=== PATIENT | female | born 1940 | race Caucasian/White ===

== ENCOUNTER 2019-05-21 02:41 | Inpatient (IN) | payer MEDICARE, OTHER ==
[~2019-05-21] VITALS: Ht 165.1 cm; Wt 65.5 kg
[2019-05-21 02:53] VITALS: BP 123/55; PULSE 95; TEMP 98.1
[2019-05-21] MEDS ORDERED: VASOTEC 2.2.5 MG/TAB PO (03:10)
[2019-05-21] MEDS ORDERED: AGGRENOX ER 251 CER PO (03:10)
[2019-05-21] MEDS ORDERED: LASIX 20MG TABL20 MG PO (03:11)
[2019-05-21] MEDS ORDERED: NITROSTAT0.4 MG/TAB SL (03:12)
[2019-05-21] MEDS ORDERED: ZOCOR 20MG20 MG PO (03:13)
[2019-05-21] MEDS ORDERED: ALDACTONE 25MG25 M1 PO ×2 (03:14→03:15)
[2019-05-21 04:21] LABS: MUCOUS Present /lpf; PH 6 (5-8); SQUAMOUS EPITHELIAL None Seen /hpf; URINE APPEARANCE Clear; URINE BACTERIA Rare /hpf; URINE BILIRUBIN Negative (NEGATIVE); URINE BLOOD Negative (NEGATIVE); URINE COLOR Yellow; URINE GLUCOSE Negative (NEGATIVE); URINE KETONE Trace (NEGATIVE); URINE LEUKOCYTE ESTERASE Negative (NEGATIVE); URINE NITRATE Negative (NEGATIVE); URINE PROTEIN(semi-quant) 1+ (NEGATIVE); URINE RBC 0-2 /hpf; URINE UROBILINOGEN Negative (NEGATIVE)
[2019-05-21 04:42] LABS: COLLECTION METHOD CLEAN CATCH
[2019-05-21 06:00] LABS: ALBUMIN 3.7 gm/dL (3.5-5.0); BASO % 0.4 % (0.0-2.0); BILIRUBIN,TOTAL 0.4 mg/dL (0.0-1.0); CALCIUM 10.1 mg/dL (8.4-10.2); CREATININE, serum 1.29 (0.52-1.25); EOS # 0.2 (0.0-0.7); EOS % 1.9 % (0-4.0); GRAN # 7.3 (1.4-6.5); GRAN % 76.3 % (42.2-75.2); HEMATOCRIT 39.3 % (37.0-47.0); HEMOGLOBIN 12.7 g/dl (12.5-16.0); LYMPH # 1.3 (1.2-3.4); LYMPH % 13.5 % (20.0-51.0); MEAN CELL VOLUME 95 fl (80.0-100.0); MEAN CORPUSCULAR HEMOGLOBIN 31 pg (27.0-31.0); MEAN CORPUSCULAR HGB CONC 32 g/dl (33.0-37.0); MEAN PLATELET VOLUME 10.1 fl (7.4-10.4); MONO # 0.7 (0.1-0.6); MONO % 7.5 % (1.7-9.3); PLATELET COUNT 249 K/mm3 (130-400); POTASSIUM 4.2 mmol/L (3.4-5.0); RED BLOOD COUNT 4.15 M/mm3 (4.10-5.30); REDCELL DISTRIBUTION WIDTH-CV 12.9 % (11.5-14.5)
[2019-05-21 06:02] LABS: PROTHROMBIN TIME 12.1 SECONDS (9.7-12.8)
[2019-05-21 06:21] LABS: PRE ALBUMIN 19.8 mg/dL (17.6-36.0)
[2019-05-21 07:07] VITALS: BP 132/50; PULSE 97; TEMP 98.1
--- NOTE | 2019-05-21 10:59 | NUR ---
SW met with the patient to discuss a discharge plan. The pt lives in [place] with her , Fam. The pt does not use DME and reports independence with ADLs. The pt's PCP is Dr. Scott and pt receives her medications from [facility] in [place] with no difficulties. The pt does not have advanced directive in the EMR but reports she does have them completed. Once the pt discharges home pt's Fam will provide transportation. SW will continue to follow to assist with any discharge recommendations.
--- NOTE | 2019-05-21 11:15 | NUR ---
PATIENT RESTING IN BED, PT SEEN BY HOSPITALIST AND IS MEDICALLY OPTIMIZED FOR SURGERY PENDING AGGRONOX TIMING. AT BEDSIDE.
[2019-05-21 11:22] VITALS: BP 114/49; PULSE 95; TEMP 97.9
--- NOTE | 2019-05-21 11:26 | NUR ---
First visit from the audio narrator. No needs right now.
--- NOTE | 2019-05-21 11:50 | NUR ---
SPOKE WITH CHRISTINE RODGERS FOR AND PLAN ON SURGERY WED PM D/T MEDICATION AGGRONOX.
[2019-05-21 15:33] VITALS: BP 124/82; PULSE 90; TEMP 99.2
--- NOTE | 2019-05-21 18:51 | NUR ---
REPORT TO EMMANUEL STYLES.
[2019-05-21 20:50] VITALS: BP 134/69; PULSE 111; TEMP 98
[2019-05-22 00:23] VITALS: BP 146/77; PULSE 112; TEMP 98.1
--- NOTE | 2019-05-22 00:57 | NUR ---
Patient called out and stated her heels were hurting her. Upon arrival to the room patient noted to be crying and stated that she felt like she needed to move and that her heels were just hurting so bad. Patient repositoned and ice placed on hip. Heels floated. Patient stated she felt much better after this repositioning, but was still hurting. PRN pain medication administered. Upon reassessment, patient was asleep. Will continue to monitor and provide pain management.
[2019-05-22 03:16] VITALS: BP 130/58; PULSE 93; TEMP 98.4
--- NOTE | 2019-05-22 06:40 | NUR ---
awake resting in bed, bedside shift report received from STEPHANI Diego
[2019-05-22 07:05] LABS: BASO % 0.4 % (0.0-2.0); EOS # 0.2 (0.0-0.7); EOS % 2.2 % (0-4.0); GRAN # 7.5 (1.4-6.5); GRAN % 80.4 % (42.2-75.2); HEMATOCRIT 41.2 % (37.0-47.0); HEMOGLOBIN 13.1 g/dl (12.5-16.0); LYMPH # 0.9 (1.2-3.4); LYMPH % 9.8 % (20.0-51.0); MEAN CELL VOLUME 94 fl (80.0-100.0); MEAN CORPUSCULAR HEMOGLOBIN 30 pg (27.0-31.0); MEAN CORPUSCULAR HGB CONC 32 g/dl (33.0-37.0); MEAN PLATELET VOLUME 10.2 fl (7.4-10.4); MONO # 0.6 (0.1-0.6); MONO % 6.8 % (1.7-9.3); PLATELET COUNT 224 K/mm3 (130-400); RED BLOOD COUNT 4.37 M/mm3 (4.10-5.30); REDCELL DISTRIBUTION WIDTH-CV 12.8 % (11.5-14.5)
[2019-05-22 07:09] LABS: CALCIUM 9.9 mg/dL (8.4-10.2); CREATININE, serum 0.87 (0.52-1.25); POTASSIUM 4.9 mmol/L (3.4-5.0)
--- NOTE | 2019-05-22 08:10 | NUR ---
full assessment completed, see interventions for further info, consent signed, has ordered breakfast, denies needs at this time
--- NOTE | 2019-05-22 09:45 | NUR ---
CATTLE TESTER in and assisting her with am hygiene, denies needs
--- NOTE | 2019-05-22 10:40 | NUR ---
appears to be dozing, in bed with eyes closed, resp quiet and easy
[2019-05-22 11:36] VITALS: BP 98/59; PULSE 96; TEMP 99.6
--- NOTE | 2019-05-22 15:20 | NUR ---
medicated with morphine 2mg slow IV in anticipation of going to radiology for CT scan, staff here and to radiology per bed
--- NOTE | 2019-05-22 15:50 | NUR ---
returned to room per bed, repositioned for comfort, denies needs
[2019-05-22 16:29] VITALS: BP 145/71; PULSE 112; TEMP 100.1
--- NOTE | 2019-05-22 17:11 | NUR ---
Ariela HORVATH in to see and talk with patient
--- NOTE | 2019-05-22 18:45 | NUR ---
appears to be dozing, awakened and bedside shift report given to STEPHANI Dang
[2019-05-22 19:33] VITALS: BP 125/88; PULSE 104; TEMP 98.5
--- NOTE | 2019-05-22 21:10 | NUR ---
Pt. laying in bed at this time. Pt. is A&OX3, assessment complete. INT to rt. forearm patent. Pt. reports pain to rt. hip at a 5 intermittently. Gave pain meds per orders. Pt. denies further needs, call light within reach.
[2019-05-23] VITALS (20 sets, daily range): BP systolic 81–147; BP diastolic 41–94; PULSE 88–117; TEMP 97.6–99.1
--- NOTE | 2019-05-23 06:05 | NUR ---
Pt. slept well through the night. Pt. remains A&OX3. INT to rt. forearm patent. Pt. denies needs at this time.
[2019-05-23 06:33] LABS: BASO # 0.1 (0.0-0.2); BASO % 0.6 % (0.0-2.0); EOS # 0.1 (0.0-0.7); EOS % 0.7 % (0-4.0); GRAN # 8.5 (1.4-6.5); GRAN % 78.4 % (42.2-75.2); HEMATOCRIT 40.6 % (37.0-47.0); HEMOGLOBIN 12.9 g/dl (12.5-16.0); LYMPH # 1.3 (1.2-3.4); LYMPH % 11.9 % (20.0-51.0); MEAN CELL VOLUME 94 fl (80.0-100.0); MEAN CORPUSCULAR HEMOGLOBIN 30 pg (27.0-31.0); MEAN CORPUSCULAR HGB CONC 32 g/dl (33.0-37.0); MONO # 0.8 (0.1-0.6); MONO % 7.8 % (1.7-9.3); PLATELET COUNT 211 K/mm3 (130-400); RED BLOOD COUNT 4.31 M/mm3 (4.10-5.30); REDCELL DISTRIBUTION WIDTH-CV 12.7 % (11.5-14.5)
[2019-05-23 06:38] LABS: CREATININE, serum 0.89 (0.52-1.25); POTASSIUM 4.7 mmol/L (3.4-5.0)
--- NOTE | 2019-05-23 06:42 | NUR ---
bedside shift report received from STEPHANI Dang
--- NOTE | 2019-05-23 08:30 | NUR ---
vital signs completed by TOUR DRIVER and calls to notify this nurse her O2 sat is 88% on room air and heart rate is in the 120s, entered room and patient denies shortness of breath, am hygiene completed, catheter appears to be leaking and care provided, urine is cloudy and has a foul odor, Elizabeth RODGERS notified and will obtain a urine specimen,
--- NOTE | 2019-05-23 09:00 | NUR ---
lab in to draw blood, Dr Kaur and care team in to see patient, EKG then completed, spoke with radiology nurse regarding being able to do lung biopsy early afternoon
--- NOTE | 2019-05-23 09:15 | NUR ---
radiology nurse did call and will plan to do lung biopsy between 1300 and 1330
--- NOTE | 2019-05-23 09:20 | NUR ---
[place] CRNA notified of the plan to do lung biopsy before surgery
[2019-05-23 09:55] LABS: PH 5 (5-8); SQUAMOUS EPITHELIAL None Seen /hpf; URINE APPEARANCE Cloudy; URINE BACTERIA None Seen /hpf; URINE BILIRUBIN Negative (NEGATIVE); URINE BLOOD 3+ (NEGATIVE); URINE COLOR Amber; URINE GLUCOSE Negative (NEGATIVE); URINE KETONE Negative (NEGATIVE); URINE LEUKOCYTE ESTERASE 3+ (NEGATIVE); URINE NITRATE Positive (NEGATIVE); URINE PROTEIN(semi-quant) 2+ (NEGATIVE); URINE RBC >50 /hpf; URINE UROBILINOGEN Negative (NEGATIVE)
[2019-05-23 10:02] LABS: COLLECTION METHOD CATHETER
--- NOTE | 2019-05-23 10:57 | NUR ---
full assessment completed, spoke with VISHAL Nelson and informed her of UA results and was giving Rocephin and also of the lung biopsy early afternoon before surgery,
--- NOTE | 2019-05-23 11:00 | NUR ---
called and in to visit with her
--- NOTE | 2019-05-23 11:54 | NUR ---
resting in bed and now at bedside
--- NOTE | 2019-05-23 11:58 | NUR ---
Architecture Instructor was called to room. Patient requested prayer. Architecture Instructor prayed with patient. No other needs right now.
--- NOTE | 2019-05-23 13:10 | NUR ---
to radiology per bed for CT guided lung biopsy, report given to Leslie Mathew RN
--- NOTE | 2019-05-23 13:30 | NUR ---
PT IN CT AND TRANSFERED VIA BACK BOARD TO CT BED. MONITORING EQUIPMENT PLACED. IMAGES DONE.
--- NOTE | 2019-05-23 13:40 | NUR ---
AT 1330 PT WAS GIVEN 0.5 MG VERSED AND 25 MCG OF FENT[place]L FOR PAIN DUE TO HIP FX
--- NOTE | 2019-05-23 13:55 | NUR ---
SURGERY STAFF COMES TO GET PT. REPORT GIVEN TO RONI STYLES. PT IS SETTLED INTO HER BED AND TAKEN BY OR STAFF. PT IS ALERT AND RESPNSIVE TO STAFF.
--- NOTE | 2019-05-23 14:32 | NUR ---
remains off the unit for lung biopsy/surgery
--- NOTE | 2019-05-23 16:50 | NUR ---
returned to room per bed from PACU, awake and alert, IV infusing and placed on pump at 100ml/hr, O2 on at 3L/NC and O2 sat 93%, nance cath patent draining clear yellow urine, SCDs on bilaterally and SIDNEY hose on left leg, bulky dressing to right hp with ice and is CD&I, has sensation down to tad bilaterally and unable to move lower extremities, takes sips of water and tolerates well, denies needs, at bedside
--- NOTE | 2019-05-23 17:15 | NUR ---
is beginning to c/o pain to right hip and that it is increasing, medicated with hydrocodone 7.5mg 2 tabs, had dry hacky cough that started before going to CT for lung biopsy
--- NOTE | 2019-05-23 17:30 | NUR ---
visiting with and other family member, taking some broth and tolerates well
--- NOTE | 2019-05-23 18:04 | NUR ---
tolerating broth and assisted with ordering soup for supper
--- NOTE | 2019-05-23 18:59 | NUR ---
bedside shift report given to STEPHANI Connors
--- NOTE | 2019-05-23 21:12 | NUR ---
Patient in bed, ate all of her soup and ice cream without nausea or vomiting. Has nance catheter to BSD with cloudy yellow urine, catheter care provided. Has large dressing to right hip with ice pack on. Placed SIDNEY hose to right leg, wearing SCD's bilaterally. Reports pain to right leg and foot 8/10, medicated with [place] 7.5mg 2 tabs at this time. Nance previously kinked and had leaked on pad, changed pad at this time, patient rolls fair side to side with assist. IVF to right forearm without redness or swelling. WEaring oxygen at 2L/nc.
--- NOTE | 2019-05-24 02:20 | NUR ---
Capped IV site at this time. Taking food and fluids well. Denies need for pain meds at this time.
[2019-05-24 04:14] VITALS: BP 96/72; PULSE 107; TEMP 98.4
--- NOTE | 2019-05-24 04:33 | NUR ---
Spoke with Dr Delgadillo regarding telemetry call stating patient was going in and out of AFIB and EKG completed with results in the computer of Sinus Tachycardia. No new orders at this time.
--- NOTE | 2019-05-24 05:36 | NUR ---
Patient complains of right hip pain, 05/19. Medicated with [place] 7.5mg 2 tabs at this time.
--- NOTE | 2019-05-24 06:15 | NUR ---
Dr Arthur in and changes drsg to right hip, places Aquacel.
[2019-05-24 07:19] LABS: CALCIUM 9.8 mg/dL (8.4-10.2); CREATININE, serum 0.87 (0.52-1.25); POTASSIUM 4.8 mmol/L (3.4-5.0)
[2019-05-24 07:23] LABS: BASO % 0.2 % (0.0-2.0); GRAN # 8.6 (1.4-6.5); LYMPH # 0.7 (1.2-3.4); LYMPH % 6.7 % (20.0-51.0); MEAN CELL VOLUME 96 fl (80.0-100.0); MEAN CORPUSCULAR HGB CONC 31 g/dl (33.0-37.0); MEAN PLATELET VOLUME 10.5 fl (7.4-10.4); MONO # 0.9 (0.1-0.6); MONO % 8.7 % (1.7-9.3); PLATELET COUNT 200 K/mm3 (130-400); RED BLOOD COUNT 3.67 M/mm3 (4.10-5.30); REDCELL DISTRIBUTION WIDTH-CV 12.7 % (11.5-14.5)
[2019-05-24 07:30] LABS: HEMATOCRIT 35.1 % (37.0-47.0); HEMOGLOBIN 10.9 g/dl (12.5-16.0); MEAN CORPUSCULAR HEMOGLOBIN 30 pg (27.0-31.0)
[2019-05-24 07:44] VITALS: BP 103/58; PULSE 93; TEMP 98
[2019-05-24 11:22] VITALS: BP 95/71; PULSE 112; TEMP 98.1
--- NOTE | 2019-05-24 18:00 | NUR ---
Patient did well today. She sat up in the chair most the day. She stated she is more comfortable in the chair than the bed. No complaints of nausea. Pain seems to be better controlled today. Her right hip dressing was changed this morning. No other changes at this time. Call light within reach.
[2019-05-24 19:39] VITALS: BP 118/69; PULSE 97; TEMP 98
--- NOTE | 2019-05-24 21:00 | NUR ---
Pt. sitting up in chair at this time. Pt. is A&OX3, assessment complete. IV to rt. forearm patent, IV fluids infusing per orders. Dressing to rt. hip CDI. Pt. assisted with 2 assist back to bed at this time. Pt. a bit unsteady. Pt. reported pain at a 6 on pain scale, will give pain meds per orders. Pt. denies further needs at this time. Call light within reach.
[2019-05-24 23:37] VITALS: BP 111/64; PULSE 83; TEMP 98.1
[2019-05-25] VITALS (9 sets, daily range): BP systolic 106–154; BP diastolic 55–94; PULSE 97–163; TEMP 97.8–101.8
--- NOTE | 2019-05-25 02:25 | NUR ---
New orders for ABG and portable cxr.
--- NOTE | 2019-05-25 02:45 | NUR ---
New order for lasix.
[2019-05-25 02:53] LABS: ARTERIAL BLD GAS O2 SATURATION 96.5 % (92-100); ARTERIAL BLD GAS TCO2 CT 26.6; ARTERIAL BLOOD GAS BASE EXCESS 0.3 (-2-2); ARTERIAL BLOOD GAS HCO3 25.3 meq/L (22-26); ARTERIAL BLOOD GAS PCO2 42.4 mmHg (35-45); ARTERIAL BLOOD GAS PO2 92.9 mmHg (80-100); ARTERIAL BLOOD GAS pH 7.39 (7.35-7.45)
[2019-05-25 06:56] LABS: BASO % 0.3 % (0.0-2.0); EOS # 0.1 (0.0-0.7); EOS % 0.8 % (0-4.0); GRAN # 8.9 (1.4-6.5); GRAN % 83.4 % (42.2-75.2); LYMPH # 0.7 (1.2-3.4); LYMPH % 6.1 % (20.0-51.0); MEAN CELL VOLUME 95 fl (80.0-100.0); MEAN CORPUSCULAR HEMOGLOBIN 30 pg (27.0-31.0); MEAN CORPUSCULAR HGB CONC 31 g/dl (33.0-37.0); MEAN PLATELET VOLUME 10.4 fl (7.4-10.4); MONO # 0.9 (0.1-0.6); MONO % 8.8 % (1.7-9.3); PLATELET COUNT 202 K/mm3 (130-400); REDCELL DISTRIBUTION WIDTH-CV 12.7 % (11.5-14.5)
[2019-05-25 07:00] LABS: HEMATOCRIT 35.2 % (37.0-47.0)
[2019-05-25 07:23] LABS: CALCIUM 9.8 mg/dL (8.4-10.2); CREATININE, serum 0.95 (0.52-1.25); POTASSIUM 4.8 mmol/L (3.4-5.0)
--- NOTE | 2019-05-25 07:48 | NUR ---
REPORT FROM MARYAM STYLES.
--- NOTE | 2019-05-25 11:01 | NUR ---
PATIENT HAS HIGH LEVEL OF ANXIETY WITH NEW DIAGNOSIS OF LUNG CA. FAMILY ON WAY FOR FAMILY MEETING. BEYER CATHETER DISCONTINUED PER ORDERS. PT TOLERATED WELL. PT SHOWERED WITH OT. PRN ATIVAN GIVEN PER ORDERS.
--- NOTE | 2019-05-25 15:16 | NUR ---
ULYSSES met with the patient to discuss placement. SW presented the patient choice form and pt chose [facility] due to the services provided. ULYSSES faxed a referral to Juanito Negrete f# p# . Juanito reports she did receive referral packet and will review packet on Tuesday. ULYSSES will continue to follow.
--- NOTE | 2019-05-25 19:18 | NUR ---
REPORT TO MARYAM STYLES.
--- NOTE | 2019-05-25 19:45 | NUR ---
Pt. sitting up in chair with family at bedside. Pt. is A&OX3, assessment complete. INT to lt. wrist patent. Dressing to rt. hip CDI. Pt. reports pain at a 4 on pain scale. Pt. would like pain medication before bed. Will give per orders. Pt. denies further needs, call light within reach.
[2019-05-26] VITALS (8 sets, daily range): BP systolic 90–141; BP diastolic 49–93; PULSE 101–114; TEMP 97.9–98.5
[2019-05-26 06:41] LABS: BASO # 0.1 (0.0-0.2); BASO % 0.5 % (0.0-2.0); EOS # 0.1 (0.0-0.7); EOS % 1.1 % (0-4.0); GRAN # 7.7 (1.4-6.5); GRAN % 79.7 % (42.2-75.2); HEMOGLOBIN 10.4 g/dl (12.5-16.0); LYMPH # 0.9 (1.2-3.4); LYMPH % 9.3 % (20.0-51.0); MEAN CELL VOLUME 96 fl (80.0-100.0); MEAN CORPUSCULAR HEMOGLOBIN 30 pg (27.0-31.0); MEAN CORPUSCULAR HGB CONC 31 g/dl (33.0-37.0); MEAN PLATELET VOLUME 9.4 fl (7.4-10.4); MONO # 0.9 (0.1-0.6); MONO % 8.9 % (1.7-9.3); PLATELET COUNT 273 K/mm3 (130-400); RED BLOOD COUNT 3.45 M/mm3 (4.10-5.30); REDCELL DISTRIBUTION WIDTH-CV 12.5 % (11.5-14.5)
[2019-05-26 06:48] LABS: HEMATOCRIT 33.2 % (37.0-47.0)
[2019-05-26 06:50] LABS: CALCIUM 9.7 mg/dL (8.4-10.2); CREATININE, serum 0.98 (0.52-1.25); POTASSIUM 4.7 mmol/L (3.4-5.0)
--- NOTE | 2019-05-26 08:00 | NUR ---
Patient in bed resting. Alert and oriented x 3. Shift assessment complete. Aquacell to right hip is CDI. Ortho PA in to see patient. Requested pain medicatitons this AM, given per orders. Denies further needs at this time.
--- NOTE | 2019-05-26 18:20 | NUR ---
Patient has done well throughout the day. Sitting up in recliner. Ambulates to restroom with 1 assist and walker. Steady gait. Has requested pain medications throughout the day, given per orders. Bed bath with PT. Decreased O2 to 1L, via NC. Denies BM but is passing gas. Denies further needs at this time. Will report off to shift supervisor rn.
--- NOTE | 2019-05-26 22:57 | NUR ---
PT WAS UP IN RECLINER. AQUACEL TO RT HIP INTACT, NO DRAINAGE SEEN. 1 PAIN PILL ADMIN. AT H.S. NEW ICE APPLIED TO HIP.
[2019-05-27 03:58] VITALS: BP 134/72; PULSE 109; TEMP 98.1
[2019-05-27 08:09] LABS: CALCIUM 10.1 mg/dL (8.4-10.2); CREATININE, serum 0.84 (0.52-1.25); POTASSIUM 4.6 mmol/L (3.4-5.0)
[2019-05-27 09:31] VITALS: BP 92/54; PULSE 98; TEMP 98.4
--- NOTE | 2019-05-27 10:00 | NUR ---
Patient up to recliner this morning. Patient reports pain in her hip with ambulation and movement. Administered PRN pain medication per order. Patient is alert and oriented, answers questions appropriately. Patient denies other needs at this time, call light within reach.
[2019-05-27 12:43] VITALS: BP 101/69; PULSE 106; TEMP 97.8
--- NOTE | 2019-05-27 16:11 | NUR ---
Patient has been up in bedside recliner today and ambulates to bathroom with 1x assist and walker. Patient reports a very small bowel movement this afternoon. Right hip continues to be painful, administered PRN pain medication per orders. Aquacel on right hip is CDI. Patient remains concerned about edema in her feet and ankles. Patient states that in the past Lasix are the only thing that has helped, however patient is too hypotensive to administer ordered lasix. Cash hose were applied and feet elevated. Ice on hip per patient comfort. Patient denies needs at this time, call light within reach.
[2019-05-27 16:17] VITALS: BP 125/50; PULSE 109; TEMP 98.4
[2019-05-27 17:32] LABS: PH 6 (5-8); SQUAMOUS EPITHELIAL 0-2 /hpf; URINE APPEARANCE Clear; URINE BACTERIA None Seen /hpf; URINE BILIRUBIN Negative (NEGATIVE); URINE BLOOD Negative (NEGATIVE); URINE COLOR Yellow; URINE GLUCOSE Negative (NEGATIVE); URINE KETONE Negative (NEGATIVE); URINE LEUKOCYTE ESTERASE Negative (NEGATIVE); URINE NITRATE Negative (NEGATIVE); URINE PROTEIN(semi-quant) Negative (NEGATIVE); URINE RBC None Seen /hpf; URINE UROBILINOGEN Negative (NEGATIVE)
[2019-05-27 18:14] LABS: COLLECTION METHOD CLEAN CATCH
[2019-05-27 20:44] VITALS: BP 118/64; PULSE 113; TEMP 98.6
[2019-05-27 23:32] VITALS: BP 123/58; PULSE 108; TEMP 97.9
[2019-05-28 03:18] VITALS: BP 116/68; PULSE 106; TEMP 97.5
--- NOTE | 2019-05-28 06:35 | NUR ---
awake resting in bed and ordering breakfst, bedside shift report received from STEPHANI Samuels
--- NOTE | 2019-05-28 06:45 | NUR ---
full assessment completed, see interventions for further info, denies needs at this time
[2019-05-28 07:00] LABS: BASO # 0.1 (0.0-0.2); BASO % 0.6 % (0.0-2.0); EOS # 0.2 (0.0-0.7); EOS % 1.8 % (0-4.0); GRAN % 75.6 % (42.2-75.2); LYMPH # 1.4 (1.2-3.4); LYMPH % 13.2 % (20.0-51.0); MEAN CELL VOLUME 96 fl (80.0-100.0); MEAN CORPUSCULAR HGB CONC 31 g/dl (33.0-37.0); MEAN PLATELET VOLUME 10.2 fl (7.4-10.4); MONO # 0.8 (0.1-0.6); PLATELET COUNT 266 K/mm3 (130-400); RED BLOOD COUNT 3.37 M/mm3 (4.10-5.30); REDCELL DISTRIBUTION WIDTH-CV 12.5 % (11.5-14.5)
[2019-05-28 07:01] LABS: HEMATOCRIT 32.3 % (37.0-47.0); HEMOGLOBIN 9.9 g/dl (12.5-16.0); MEAN CORPUSCULAR HEMOGLOBIN 29 pg (27.0-31.0)
[2019-05-28 07:10] LABS: CREATININE, serum 0.82 (0.52-1.25); POTASSIUM 4.4 mmol/L (3.4-5.0)
[2019-05-28 07:58] VITALS: BP 126/49; PULSE 111; TEMP 98.3
--- NOTE | 2019-05-28 08:10 | NUR ---
c/o pain and medicated with hydrocodone 7.5mg 2 tabs and in anticipation of therapy
--- NOTE | 2019-05-28 09:36 | NUR ---
up and ambulated with physical therapy and c/o pain 04/18 while up and walking, now back in recliner and states pain is 4 while resting
--- NOTE | 2019-05-28 10:30 | NUR ---
Juanito Devine from [facility] reports they can accept the patient and will be in room 477 at 2pm. The pt is to discharge today, 05/28. SW, the pt and pt's nurse spoke to pt's Fam about transportation; Fam will transport pt by private vehicle. Report p# . ULYSSES presented the IM form to the pt; pt understood and signed the form. A copy was provided to the pt; original was placed in the chart. ULYSSES to fax discharge orders. There are no additional needs at this time.
--- NOTE | 2019-05-28 11:14 | NUR ---
Dr Delgadillo and care team in to see patient, sitting up in chair ready to eat lunch before transfer
[2019-05-28] MEDS ORDERED: COLACE 100100 MG/CAP PO (11:15)
[2019-05-28] MEDS ORDERED: NORCO 325 MG-101 TAB PO (11:16)
[2019-05-28] MEDS ORDERED: LOVENOX 4040 MG/0.4 SQ (11:17)
--- NOTE | 2019-05-28 11:30 | NUR ---
report called to [facility],
--- NOTE | 2019-05-28 12:12 | NUR ---
dressed and ready for discharge, medicated with hydrocodone 7.5mg 2 tabs
--- NOTE | 2019-05-28 12:20 | NUR ---
Follow up visit from the area operations director. No needs right now.
--- NOTE | 2019-05-28 12:21 | NUR ---
discharged per WC
== END 2019-05-28 12:21 | DRG 469 ==
LOC: SURG 02:41
PROVIDERS: Nurse Practitioner Family; Orthopaedic Surgery; Physician Assistant; ADMIT Student in an Organized Health Care Education/Training Program
PROC: 0BBJ3ZX Excision of Left Lower Lung Lobe, Percutaneous Approach, Diagnostic (ICD-10-PCS; 2019-05-23)
PROC: 0SRR0J9 Replacement of Right Hip Joint, Femoral Surface with Synthetic Substitute, Cemented, Open Approach (ICD-10-PCS; principal; 2019-05-23 14:30)
DX: S72.001A Fracture of unspecified part of neck of right femur, initial encounter for closed fracture (principal); J96.01 Acute respiratory failure with hypoxia; T83.511A Infection and inflammatory reaction due to indwelling urethral catheter, initial encounter; N39.0 Urinary tract infection, site not specified; C34.90 Malignant neoplasm of unspecified part of unspecified bronchus or lung; E87.1 Hypo-osmolality and hyponatremia; I50.32 Chronic diastolic (congestive) heart failure; I13.0 Hypertensive heart and chronic kidney disease with heart failure and stage 1 through stage 4 chronic kidney disease, or unspecified chronic kidney disease; E78.5 Hyperlipidemia, unspecified; Y93.01 Activity, walking, marching and hiking; I25.10 Atherosclerotic heart disease of native coronary artery without angina pectoris; W18.39XA Other fall on same level, initial encounter; J44.9 Chronic obstructive pulmonary disease, unspecified; E83.52 Hypercalcemia; R00.0 Tachycardia, unspecified; M81.0 Age-related osteoporosis without current pathological fracture; N18.9 Chronic kidney disease, unspecified; I25.2 Old myocardial infarction; R73.02 Impaired glucose tolerance (oral); B96.20 Unspecified Escherichia coli [E. coli] as the cause of diseases classified elsewhere; K59.00 Constipation, unspecified; M19.90 Unspecified osteoarthritis, unspecified site; Z79.82 Long term (current) use of aspirin; Z95.5 Presence of coronary angioplasty implant and graft; Z87.891 Personal history of nicotine dependence; Z88.9 Allergy status to unspecified drugs, medicaments and biological substances
CPT/HCPCS: 99222-AI; 99231-AI; 99232-AI; 99233-AI; A4216; A9284; C1776; J0690; J0696; J1100; J1650; J1940; J2060; J2250; J2270; J2370; J2405; J2704; J3010; J7030; J7050; Q9967